=== PATIENT | female | born 1970 | race Caucasian/White ===

== ENCOUNTER 2018-12-27 17:17 | Emergency (ER) | payer OTHER ==
[~2018-12-27] VITALS: Ht 162.6 cm; Wt 72.6 kg
[~2018-12-27 17:17] MED LIST: ACETAMINOPHEN-1 EAC1 PO; ATIVAN1 MG PO; CIPRO250 M1 PO; CIPROFLOXACIN500 M1 PO; CYCLOBENZAPRINE10 MG PO; CYMBALTA30 MG; DEPAKOTE; DEPAKOTE ER500 MG PO; DEPAKOTE500 MG PO; DESYREL50 MG; FLOMAX0.4 MG PO; HYDROCODONE-AP1 EAC6 PO; IBUPROFEN 800800 MG PO; KEPPRA 500 MG500 M1 PO; KEPPRA 500 MG500 MG PO; KEPPRA1000 MG; KEPPRA1000 MG PO; LEVAQUIN 500 M500 M2 PO; LEVSIN0.125 MG PO; NORCO 5-325 TA1 EAC1 PO; NORCO 5-325 TA1 EACH PO; PREDNISONE 20 M20 M1 PO; PREDNISONE50 MG PO; REMERON15 MG PO; TRIAMCINOLONE A15 G1 TP; ZOFRAN4 MG PO; ZPAK PO; [UNRECOGNIZED DRUG - REMARK]
[2018-12-27] MEDS ORDERED: KEFLEX500 M1 PO (17:38)
[2018-12-27] MEDS ORDERED: TRAMADOL 50 MG50 MG PO (17:38)
[2018-12-27 17:46] VITALS: BP 109/60
== END 2018-12-27 17:48 | disposition home or self-care (01) ==
LOC: M.ERS 17:17
DX: K08.89 Other specified disorders of teeth and supporting structures (principal); Z88.8 Allergy status to other drugs, medicaments and biological substances; Z88.6 Allergy status to analgesic agent; Z87.442 Personal history of urinary calculi; Z98.51 Tubal ligation status

== ENCOUNTER 2020-11-01 14:57 | Emergency (ER) | payer OTHER ==
[~2020-11-01] VITALS: Ht 162.6 cm; Wt 85.7 kg
[~2020-11-01 14:57] MED LIST changes: +KEFLEX500 M1 PO; +TRAMADOL 50 MG50 MG PO
[2020-11-01] MEDS ORDERED: PREDNISONE 20 M20 M1 PO (15:27)
[2020-11-01] MEDS ORDERED: HYDROCODON-ACE1 EAC7 PO (15:27)
[2020-11-01 15:34] VITALS: BP 136/87
== END 2020-11-01 15:34 | disposition home or self-care (01) ==
LOC: M.ERS 14:57
DX: M77.8 Other enthesopathies, not elsewhere classified (principal); Z88.6 Allergy status to analgesic agent; Z88.8 Allergy status to other drugs, medicaments and biological substances; Z98.51 Tubal ligation status; Z87.442 Personal history of urinary calculi

== ENCOUNTER 2021-01-08 10:10 | Emergency (ER) | payer BC, OTHER ==
[~2021-01-08] VITALS: Ht 162.6 cm; Wt 85.7 kg
[~2021-01-08 10:10] MED LIST changes: +HYDROCODON-ACE1 EAC7 PO
[2021-01-08 10:16] VITALS: BP 138/84
[2021-01-08] MEDS ORDERED: FLEXERIL PO (10:39)
[2021-01-08] MEDS ORDERED: VENTOLIN HFA 1818 GM INH (10:39)
[2021-01-08] MEDS ORDERED: ZOFRAN ODT4 MG PO (10:39)
== END 2021-01-08 10:53 | disposition home or self-care (01) ==
LOC: M.ERS 10:10
DX: U07.1 COVID-19 (principal); Z98.51 Tubal ligation status; Z88.8 Allergy status to other drugs, medicaments and biological substances; Z88.1 Allergy status to other antibiotic agents

== ENCOUNTER 2021-04-30 05:46 | Emergency (ER) | payer OTHER ==
[~2021-04-30] VITALS: Ht 162.6 cm; Wt 88.5 kg
[~2021-04-30 05:46] MED LIST changes: +FLEXERIL PO; +VENTOLIN HFA 1818 GM INH; +ZOFRAN ODT4 MG PO
[2021-04-30 11:45] LABS: ABSOLUTE EOSINOPHILS 0.2 thou/uL (0.0-0.7); ABSOLUTE LYMPHOCYTES 1.3 thou/uL (0.8-5.3); ABSOLUTE MONOCYTES 0.4 thou/uL (0.0-1.2); ABSOLUTE NEUTROPHILS 3.1 thou/uL (1.6-8.1); BASOPHILS 0.7 %; HEMATOCRIT 41.6 % (37.0-47.0); HEMOGLOBIN 13.7 gm/dL (12.0-15.0); LYMPHOCYTES 25.8 %; MCH 28.4 pg (26.0-34.0); MCHC 32.9 g/dL (28.0-37.0); MCV 86.3 fL (80.0-100.0); MONOCYTES 7.4 %; MPV 8.2 fl. (7.2-11.1); NUCLEATED RBCS 0 /100WBC; PLATELET COUNT* 190 thou/uL (150-400); POLYS 62.1 %; RBC 4.82 mil/uL (4.20-5.00); RDW-CV 13.9 % (10.5-14.5)
[2021-04-30 11:52] LABS: CALCIUM 8.7 mg/dL (8.5-10.1); CREATININE 0.7 mg/dL (0.6-1.3); POTASSIUM 4.3 mmol/L (3.5-5.1)
[2021-04-30] MEDS ORDERED: IBUPROFEN 800800 M1 PO (13:09)
[2021-04-30] MEDS ORDERED: HYDROCODON-ACE1 EAC7 PO (13:15)
[2021-04-30 13:29] VITALS: BP 133/70
== END 2021-04-30 13:29 | disposition home or self-care (01) ==
LOC: M.ERS 05:46
PROVIDERS: Nurse Practitioner Family
DX: R60.9 Edema, unspecified (principal); Z87.442 Personal history of urinary calculi; Z98.51 Tubal ligation status; Z86.16 Personal history of COVID-19; Z79.51 Long term (current) use of inhaled steroids; Z79.899 Other long term (current) drug therapy; Z88.1 Allergy status to other antibiotic agents; Z88.6 Allergy status to analgesic agent; Z88.8 Allergy status to other drugs, medicaments and biological substances